=== PATIENT | female | born 2000 ===

== ENCOUNTER 2019-08-02 02:36 | Emergency (ER) | payer BC ==
[2019-08-02] MEDS ORDERED: DOXYcycline CAP(*) 100 MG PO ONE (03:39)
[2019-08-02] MEDS ORDERED: Clindamycin CAP* 150 MG PO ONE (03:39)
--- NOTE | 2019-08-02 03:41 | ED ---
Bite Injury/Animal - HPI Summary HPI Summary: This patient is a 18 year old F presenting to [facility] with a chief complaint of dog bite approximately 1 hour ago. Pt reports it was a big dog, [place]. She was trying to grab the dog. The animal is up to date on immunizations. Per triage, the patient rates the pain 9/10 in severity. - History of Current Complaint Chief Complaint: EDAnimalBite Stated Complaint: HAND LAC PER PT Time Seen by Provider: 08/02/19 03:32 Hx Obtained From: Patient Onset of Injury: Happened hours ago Type of Bite: Animal Hx of Bite: Provoked by: - Was trying to get control of the dog Has Animal Been Immunized?: Yes Severity Initially: Severe Severity Currently: Severe Pain Intensity: 9 Pain Scale Used: 0-10 Numeric Character: Puncture Aggravating Factor(s): Nothing Alleviating Factor(s): Nothing Associated Signs And Symptoms: Positive: Negative - Allergies/Home Medications Allergies/Adverse Reactions: Allergies Allergy/AdvReac Type Severity Reaction Status Date / Time amoxicillin Allergy Hives/Diff. Verified 08/02/19 02:38 Breathing/I tching Penicillins Allergy Hives Verified 08/02/19 02:38 sulfamethoxazole Allergy Rash And Verified 08/02/19 02:38 [From Bactrim] Itching trimethoprim [From Bactrim] Allergy Rash And Verified 08/02/19 02:38 Itching PMH/Surg Hx/FS Hx/Imm Hx Sensory History: Denies: Hx Legally Blind, Hx Deafness Opthamlomology History: Denies: Hx Legally Blind - Surgical History Surgery Procedure, Year, and Place: Labia Plasty, Ingrown Toenail Surgery Infectious Disease History: Yes Infectious Disease History: Denies: Traveled Outside the [place] in Last 30 Days - Family History Known Family History: Positive: Other - Ovarian CA, Breast CA, skin CA - Social History Occupation: Employed Full-time Lives: With Family Substance Use Type: Reports: None Hx Tobacco Use: No Smoking Status (MU): Never Smoked Tobacco Review of Systems Negative: Fever Positive: Other - laceration All Other Systems Reviewed And Are Negative: Yes Physical Exam - Summary Physical Exam Summary: Appearance: Well-appearing, Well-nourished, lying in bed comfortable Skin: Warm, dry, no obvious rash; Wounds to two r palm, generally overlying course of third flexor tendon, they are approx 1 cm long, and no active bleeding and no sign of tendon injury Eyes: sclera anicteric, no conjunctival pallor ENT: mucous membranes moist Neck: deferred Respiratory: No signs of respiratory distress Cardiovascular: Appears well perfused, pulses are nml Abdomen: deferred Musculoskeletal: Moving all 4 extremities without obvious discomfort; Neurological: Awake and alert, mentation is normal, speech is fluent and appropriate Psychiatric: affect is normal, does not appear anxious or depressed Triage Information Reviewed: Yes Vital Signs On Initial Exam: Initial Vitals Temp Pulse Resp BP Pulse Ox 99.6 F 60 18 129/72 100 08/02/19 02:37 08/02/19 02:37 08/02/19 02:37 08/02/19 02:37 08/02/19 02:37 Vital Signs Reviewed: Yes Procedures - Sedation Patient Received Moderate/Deep Sedation with Procedure: No Diagnostics - Vital Signs Vital Signs Temp Pulse Resp BP Pulse Ox 08/02/19 02:37 99.6 F 60 18 129/72 100 - Laboratory Lab Statement: Any lab studies that have been ordered have been reviewed, and results considered in the medical decision making process. Bite Injury Course/Dx - Course Course Of Treatment: This patient is a 18 year old F presenting to [facility] with a chief complaint of dog bite approximately 1 hour ago. Pt reports it was a big dog, [place]. Per triage, the patient rates the pain 9/10 in severity. Elected to leave the wounds open due to the risk of infection and the pt agreed to this. In the ED course the patient was given cleocin, and doxycycline. The wounds were left open to heal by secondary intention due to increased risk of infection if they were to be closed. Patient will be discharged. The patient is agreeable with this plan. - Diagnoses Provider Diagnosis: Dog bite Discharge ED - Sign-Out/Discharge Documenting (check all that apply): Patient Departure - Discharge Plan Condition: Good Disposition: HOME Prescriptions: Clindamycin HCl 300 mg PO TID #15 capsule DOXYcycline CAP(*) [DOXYcycline 100MG CAP(*)] 100 mg PO BID #10 cap Patient Education Materials: Animal Bite (ED) Referrals: Sami Hitchcock MD [Medical Doctor] - No Primary Care Phys,NOPCP [Primary Care Provider] - Additional Instructions: We elected to leave these wounds open to minimize the chance of infection. Good wound care with cleaning the wound a couple of times daily and keeping a clean dressing on are important. I have prescribed antibiotic prophylaxis for 5 days, since you are allergic to amoxicillin you will have to take a combination of 2 other antibiotics. If the wound does start to look infected despite all this come back or see the hand surgeon listed. - Billing Disposition and Condition Condition: GOOD Disposition: Home - Attestation Statements Document Initiated by Lj: Yes Documenting Scribe: Solange Monique Provider For Whom Lj is Documenting (Include Credential): Antolin Gallardo MD Scribe Attestation: Solange Nelson, scribed for Antolin Gallardo MD on 08/03/19 at 0200. Scribe Documentation Reviewed: Yes Provider Attestation: The documentation as recorded by the Solange lopez accurately reflects the service I personally performed and the decisions made by me, Antolin Gallardo MD Status of Scribe Document: Viewed
[2019-08-02 04:03] VITALS: BP 116/69
== END 2019-08-02 03:55 | disposition home or self-care (01) ==
LOC: ED 02:36
DX: S61.431A Puncture wound without foreign body of right hand, initial encounter (principal); W54.0XXA Bitten by dog, initial encounter; Y93.89 Activity, other specified; Y92.9 Unspecified place or not applicable; Z88.0 Allergy status to penicillin; Z88.2 Allergy status to sulfonamides
CPT/HCPCS: 99282; A9270-GY